=== PATIENT | female | born 2000 | race Caucasian/White ===

== ENCOUNTER 2019-02-28 23:14 | Emergency (ER) | payer SELFPAY ==
[~2019-02-28] VITALS: Ht 170.2 cm; Wt 88.2 kg
[~2019-02-28 23:14] MED LIST: CEPH-443 PO; NAPR-985 PO
[2019-02-28 23:17] VITALS: Ht 170.2 cm; Wt 88.2 kg
[2019-03-01] MEDS ORDERED: morphine 4 MG/ML VIAL IV STA (01:31)
[2019-03-01] MEDS ORDERED: ONDANSETRON 4 MG INJ IV STA (01:31)
[2019-03-01] MEDS ORDERED: SOD CHLORIDE 0.9% 1,000 ML IV STA (01:31)
[2019-03-01] MEDS ORDERED: KETOROLAC 15 MG INJ IV STA (01:31)
[2019-03-01] MEDS ORDERED: LORAZEPAM 2 MG INJ IV ONE (02:30)
[2019-03-01] MEDS ORDERED: CEFTRIAXONE 1 GM/50 ML (PMX) 50 ML IVPB ONE (06:00)
[2019-03-01 06:04] VITALS: BP 129/77; PULSE 77; RESP 16
== END 2019-03-01 06:04 | disposition home or self-care (01) ==
LOC: FTE 23:14
DX: N83.202 Unspecified ovarian cyst, left side (principal); N39.0 Urinary tract infection, site not specified
CPT/HCPCS: 36415; 74176; 76705; 76830; 76856; 80053; 81001; 81025; 83690; 85025; 85610; 85730; 96361; 96365; 96375; 99285; J0696; J1885; J2060; J2270; J2405; J7030